=== PATIENT | female | born 1995 | race Caucasian/White ===

== ENCOUNTER 2018-01-22 16:06 | Emergency (ER) | payer OTHER ==
[2018-01-22] MEDS ORDERED: Ketorolac Tromethamine 30 MG/ML VIAL ONE (18:11)
--- NOTE | 2018-01-22 18:21 | CT ---
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 COMPARISON: None. TECHNIQUE: Multiple contiguous axial images were obtained in a CT of the lumbar spine without contrast. Sagitta l and coronal reformats were preformed. FINDINGS: The vertebral bodies and intervertebral disks demonstrate normal height and alignment without fractur e or subluxation. No degenerative changes are seen. No prevertebral soft tissue swelling is present . IMPRESSION: Normal CT of the lumbar spine. POS: WILL
== END 2018-01-22 18:10 | disposition home or self-care (01) ==
LOC: ERS 16:06
DX: M54.5 Low back pain (principal)
CPT/HCPCS: 72131; 96372; J1885